=== PATIENT | female | born 1985 | race Caucasian/White ===

== ENCOUNTER → 2020-11-11 16:27 | Outpatient (BNVA) | payer OTHER, SELFPAY | PROVIDERS: Visit Provider Registered Nurse Neonatal Intensive Care | DX: Z20.822 Contact with and (suspected) exposure to COVID-19 (principal) | CPT/HCPCS: 87635 ==

== ENCOUNTER 2022-08-23 20:51 | Emergency (ER) | payer SELFPAY ==
[2022-08-23 20:56] VITALS: BP 110/73; PULSE 108; RESP 16; TEMP 36.6; O2SAT 96; BMI 22.5
--- NOTE | 2022-08-23 21:44 | ED_ITS ---
HPI - Fall General: Chief Complaint: Fall Stated Complaint: Tail Bone Pain\SOB Time Seen by Provider: 08/23/22 21:42 History of Present Illness: 37-year-old female comes in today with complaints of pain to the low back radiating to her tailbone. Patient states that she slipped about 5 days ago landing on her coccyx. Patient's been dealing with the pain with Tylenol and ibuprofen and ice and heat. Patient reports the pain becomes worse at night when she is trying to rest. Patient appears nontoxic. Patient appears nontoxic. Patient appears in no acute distress. Associated symptoms-after fall: Reports abdominal pain Review of Systems General: Reports: 10 or more systems reviewed and unremarkable except in HPI and below Const: Denies: fever(s) Resp: Reports: dyspnea GI: Reports: abdominal pain Musc: Reports: back pain Skin/Breast: Denies: rash Physical Exam Const: COMMON NORMALS: alert HENMT: COMMON NORMALS: normocephalic HEAD & SCALP: normocephalic Neck/C-Spine: COMMON NORMALS: full ROM Resp: COMMON NORMALS: normal respiratory effort and clear to auscultation bilaterally AUSCULTATION: clear to auscultation bilaterally Cardio: COMMON NORMALS: regular rate RATE: regular rate Back/Pelvis: THORACIC SPINE/UPPER BACK: No thoracic spinal tenderness LUMBAR SPINE/LOWER BACK: Yes lumbar spinal tenderness Lumbar spinal tenderness location: L5 Extremity: COMMON NORMALS: normal to inspection Neuro: SENSORIUM/ORIENTATION: Yes alert Skin: COMMON NORMALS: turgor normal GENERAL SKIN EXAM: turgor normal Course Vital Signs: Vital signs: Vital Signs Temperature 97.8 F 08/23/22 20:56 Pulse Rate 108 H 08/23/22 20:56 Respiratory Rate 16 08/23/22 20:56 Blood Pressure 110/73 08/23/22 20:56 Pulse Oximetry 96 08/23/22 20:56 Oxygen Delivery Me thod 08/23/22 20:56 MDM - Fall Medical Decision Making 37-year-old female comes in today with low back pain. Patient fell about 5 days ago and landed on her tailbone since then she has been dealing with the pain but it gets worse at night. Patient's friend was concerned that she may have fractured it and brought her into the ER for further evaluation. On exam patient has tenderness in the L5-S1 area of the spine. Patient moves all extremities well. Patient is ambulatory. Differential diagnosis includes fracture, contusion, intervertebral disc disease. X-ray was unremarkable. Reviewed exam with patient with recommendations for treatment and follow-up. Patient was given 30 mg of Toradol and a 7-1/2 mg of hydrocodone. Patient was recommended continue with medications at home and follow-up with primary care for persistent symptoms or new concerns. Discharge Plan Discharge Patient Disposition: Home Clinical Impression: Fall, Coccydynia Low back pain Qualifiers: Chronicity: acute Back pain laterality: midline Sciatica presence: without sciatica Qualified Code(s): M54.50 - Low back pain, unspecified Condition: Stable Prescriptions: New hydrocodone-acetaminophen 7.5-325 mg/15 mL solution 10 ml PO Q6H PRN (Reason: pain (scale score 7-10)) Qty: 120 0RF No Action No Known Home Medications Discharge Orders: Discharge ED (Routine); Ordered 08/23/22 Ordered By: Teddy Holloway Discharge Diet: Usual diet Discharge Activity: Increase activity as tolerated Patient Instructions: Opioid Safety, Pain Management Activity Restrictions/Additional Instructions: Use a soft cushion to sit on. Drink plenty of water with medication. Use acetaminophen and ibuprofen to control pain. Use hydrocodone for severe pain. Increase activity as tolerated. Follow-up with primary care for further instructions. Return to ED for new concerns. Coding Level of Care Code ED Round Cutter Operator for Lauren James
--- NOTE | 2022-08-23 21:47 | XRR_ITS ---
PROCEDURE INFORMATION: Exam: XR Sacrum and Coccyx, 2 or More Views Exam date and time: 08/23/2022 10:14 PM Age: 37 years old Clinical indication: Injury or trauma; Fall; Blunt trauma (contusions or hematomas); Additional info: Fall pain TECHNIQUE: Imaging protocol: XR of the sacrum and coccyx, 2 or more views. COMPARISON: CR (PELVIS, ) 08/23/2022 10:09 PM FINDINGS: Bones/joints: Normal. No acute fracture. Soft tissues: Normal. XR/XR coccyx 2V [id number] IMPRESSION: No acute findings.
--- NOTE | 2022-08-23 21:47 | XRR_ITS ---
PROCEDURE INFORMATION: Exam: XR Lumbosacral Spine Exam date and time: 08/23/2022 10:09 PM Age: 37 years old Clinical indication: Injury or trauma; Fall; Blunt trauma (contusions or hematomas) TECHNIQUE: Imaging protocol: Radiologic exam of the lumbosacral spine. Views: 2 or 3 views. COMPARISON: No relevant prior studies available. FINDINGS: Bones/joints: Normal. No acute fracture. Normal alignment. Soft tissues: Unremarkable. XR/XR lumbar spine 2-3V* [id number] IMPRESSION: No acute findings.
[2022-08-23] MEDS: ketorolac 30 mg/mL INJ IM (21:56)
[2022-08-23] MEDS: HYDROcodone-APAP 7.5-325 mg/15 mL UDC PO (22:46)
== END 2022-08-23 22:49 | disposition home or self-care (01) ==
PROVIDERS: Emergency Provider Nurse Practitioner Family
DX: M54.50 Low back pain, unspecified (principal); M53.3 Sacrococcygeal disorders, not elsewhere classified; W01.0XXA Fall on same level from slipping, tripping and stumbling without subsequent striking against object, initial encounter
CPT/HCPCS: 72100; 72220; 96372; 99284; J1885

== ENCOUNTER 2023-03-05 18:31 | Emergency (ER) | payer MEDICAID, SELFPAY ==
[2023-03-05 18:41] VITALS: BP 138/84; PULSE 84; RESP 16; TEMP 36.4; O2SAT 97; BMI 25.0
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
--- NOTE | 2023-03-05 19:11 | ED_ITS ---
HPI - Extremity Problem General: Chief complaint: Extremity Injury, Upper Stated complaint: right wrist Time Seen by Provider: 03/05/23 18:36 History of Present Illness: 37-year-old female comes in today for injury to the right wrist. Patient reports tripping and falling and injuring the right wrist. Patient states a previous fracture to the wrist. No obvious deformity or significant swelling is noted to the wrist. Patient is very guarded with movement. Sensation is intact. Review of Systems General: Reports: 10 or more systems reviewed and unremarkable except in HPI and below Musc: Reports: extremity pain and joint pain Physical Exam Const: COMMON NORMALS: alert HENMT: COMMON NORMALS: normocephalic HEAD & SCALP: normocephalic Neck/C-Spine: COMMON NORMALS: full ROM Resp: COMMON NORMALS: normal respiratory effort and clear to auscultation bilaterally AUSCULTATION: clear to auscultation bilaterally Cardio: COMMON NORMALS: regular rate RATE: regular rate Extremity: RIGHT UPPER EXTREMITY: Yes wrist (Joint line tenderness, no swelling or redness) Right wrist: Yes inspection, Yes palpation, Yes ROM (Guar ded range of motion due to pain) and Yes neurovascular exam Neuro: SENSORIUM/ORIENTATION: Yes alert Skin: COMMON NORMALS: turgor normal GENERAL SKIN EXAM: turgor normal Course Vital Signs: Vital signs: Vital Signs Temperature 97.5 F L 03/05/23 18:41 Pulse Rate 84 03/05/23 18:41 Respiratory Rate 16 03/05/23 18:41 Blood Pressure 138/84 03/05/23 18:41 Pulse Oximetry 97 03/05/23 18:41 MDM - Extremity (Nontraumatic) Medical Decision Making Patient comes in today for evaluation of injury to the right wrist that occurred yesterday. On exam patient has tenderness to the joint line with minimal to no swelling. Cap refill is intact. Sensation is intact. Differential diagnosis includes not limited to fracture, sprain, contusion. X-ray noted no fractures. Patient was recommended to wear a splint for 1 week and repeat x-ray if pain pe rsist. XR interpretation done by ED provider, pending radiology final review Discharge Plan Discharge Patient Disposition: Home Clinical Impression: Sprain and strain of wrist Condition: Stable Prescriptions: New hydrocodone-acetaminophen 5-325 mg tablet 1 tab PO Q8H PRN (Reason: pain (scale score 7-10)) Qty: 6 0RF diclofenac sodium 75 mg tablet,delayed release (DR/EC) 75 mg PO BID Qty: 14 0RF Rx Instructions: for pain and inflammation, do not use with ibuprofen or naproxen Discontinued hydrocodone-acetaminophen 7.5-325 mg/15 mL solution 10 ml PO Q6H PRN (Reason: pain (scale score 7-10)) Qty: 120 0RF Discharge Orders: Discharge ED (Routine); Ordered 03/05/23 Ordered By: Teddy Holloway Discharge Diet: Usual diet Discharge Activity: Increase activity as tolerated Patient Instructions: Wrist Sprain (ED), Opioid Safety Activity Restrictions/Additional Instructions: Where Velcro wrist splint or Gallo wrap for comfort. Use acetaminophen and diclofenac as needed for pain and inflammation. Use hydrocodone for severe pain. Use ice packs for further pain relief. Increase activity as tolerated. Stand Alone Forms: Work/School Release Coding Level of Care Code ED Hooker Off for Lauren James
[2023-03-05] MEDS: HYDROcodone-acetaminophen 5-325 mg Tablet 1 TAB PO (19:23)
[2023-03-05 19:50] VITALS: PULSE 73; RESP 14; O2SAT 98
--- NOTE | 2023-03-05 19:50 | PC.NURSE ---
universal wrist splint applied to rt wrist.
== END 2023-03-05 19:53 | disposition home or self-care (01) ==
PROVIDERS: Emergency Provider Nurse Practitioner Family
DX: S63.501A Unspecified sprain of right wrist, initial encounter (principal); S66.911A Strain of unspecified muscle, fascia and tendon at wrist and hand level, right hand, initial encounter; W01.0XXA Fall on same level from slipping, tripping and stumbling without subsequent striking against object, initial encounter
CPT/HCPCS: 73110; 99283

== ENCOUNTER 2024-01-19 10:34 | Emergency (ER) | payer SELFPAY ==
[2024-01-19 10:49] VITALS: BP 125/85; PULSE 93; RESP 20; TEMP 36.9; O2SAT 93; BMI 22.8
--- NOTE | 2024-01-19 10:50 | CT_ITS ---
WS: [id number] CT chest wo con [id number] HISTORY: Traumatic chest pain TECHNIQUE: Axial imaging performed through the thorax. Coronal and sagittal reformats are submitted. All CT scans at [facility] use at least one of these dose optimization techniques: automated exposure control; mA and/or kV adjustment per patient size (includes targeted exams where dose is mat ched to clinical indication); or iterative reconstruction. CONTRAST: None DLP: 441.91 mGy.cm COMPARISON: None available. Small left-sided pneumothorax. There is a small layering pleural effusion without significant increas ed attenuation. There is significant artifact through the lower thorax as the patient's arms are not elevated. The diaphragm cannot be evaluated. Cannot exclude diaphragmatic injury. Subcutaneous emphys ori is noted along the LEFT chest wall. There is also a very tiny RIGHT pleural effusion versus atele ctasis. Mediastinum and keith: Motion artifact obscuring detail to the mediastinum. No significant hematoma. Vessels: Normal size aorta. Limited visualization of the aorta without IV contrast. Fluid in the LEFT pleural space does contact the descending aorta. Chest wall and lower neck: No soft tissue masses. Upper abdomen: Significant artifact through the upper abdomen. Splenic injury would not be excluded o n this examination. Osseous structures: Nondisplaced anterior LEFT fourth, fifth and lateral seventh rib fractures. Nondi splaced possible LEFT sixth rib fracture. There is a subtle lucency through the rib seen on the sagit milagros projection. Thoracic spine is intact. Poorly visualized increased attenuation in the RIGHT posterior abdominal wall probably an area of con tusion with hematoma. CT/CT chest wo con [id number] IMPRESSION: 1. Small LEFT pneumothorax. 2. There is a small LEFT hemothorax. 3. Nondisplaced LEFT fourth, fifth and seventh rib fractures. Possible sixth r ib fracture. 4. Without IV contrast this study cannot exclude thoracic aortic injury. 5. Significant artifact of the lower thorax obscuring evaluation of the diaphr agm and superior spleen. It would be difficult to exclude diaphragmatic injury or splenic injury on this exam. 6. Small amount of subcutaneous air. 7. Soft tissue contusion incompletely visualized along the posterior lateral R IGHT abdominal wall.
[2024-01-19] MEDS: ondansetron 2 mg/ML SDV 2 mL 4 MG IVP (11:00)
[2024-01-19] MEDS: HYDROmorphone 1 mg/mL INJ 1 mL 0.5 MG IVP (11:00)
[2024-01-19 11:09] LABS: Basophils % 0.5 %; Eosinophils # 0.4 10^3/uL (0.0-0.8); Hematocrit 38.6 % (36-47); Lymphocytes # 0.7 10^3/uL (0.8-4.8); Lymphocytes % 8.1 %; Mean Corpuscular HGB Conc 32.9 g/dL (30-55); Mean Corpuscular Hemoglobin 31.4 pg (27-33); Mean Corpuscular Volume 95.3 fl (85-98); Mean Platelet Volume 9.3 fL (7.4-10.4); Monocytes # 0.7 10^3/uL (0.2-0.9); Monocytes % 7.9 %; Neutrophils # 6.83 10^3/uL (1.8-7.7); Neutrophils % 78.9 %; Nucleated Red Blood Cells % 0 %; Platelet Count 309 10^3/cmm (157-399); Red Blood Count 4.05 10^6/uL (3.85-5.65); Red Cell Distribution Width 15.4 % (12.1-15.1); White Blood Count 8.65 10^3/uL (3.29-11.43)
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
[2024-01-19 11:26] LABS: INR 0.92 (0.8-1.2); Partial Thromboplastin Time 26.5 SECONDS (23.9-36.7)
--- NOTE | 2024-01-19 11:28 | PC.PHAR ---
Pts' mom would like any medication to go to [facility]. Pt states pain medication is not even touching her pain level.
[2024-01-19 11:34] LABS: Alanine Aminotransferase 33 U/L (0-33); Albumin Level 3.5 g/dL (3.5-5.2); Alkaline Phosphatase 73 U/L (35-105); Anion Gap 15.5 (5-19); Aspartate Amino Transferase 54 U/L (0-32); Blood Urea Nitrogen 6 mg/dL (6-20); C Reactive Protein 45.7 mg/L (0.0-4.9); Calcium 8.6 mg/dL (8.5-10.5); Carbon Dioxide 24 mmol/L (22-29); Chloride 101 mmol/L (98-107); Creatinine Clr Calc Pharmacy 128.9867; Globulin 3.3 g/dL (1.3-4.6); Glomerular Filtration Rate 110.7 mL/min (90-130); Glucose 106 mg/dL (65-115); Osmolality Calculated 282 mOsm/kg (285-295); Potassium 3.5 mmol/L (3.5-5.1); Sodium 137 mmol/L (136-145); Total Bilirubin 0.4 mg/dL (0.15-1.2); Total Protein 6.8 g/dL (6.6-8.7)
[2024-01-19 11:35] LABS: Lactic Sepsis W/Reflex 0.9 mmol/L (0.5-2.2)
[2024-01-19 11:39] LABS: Procalcitonin 10.96 ng/mL (0-0.5)
[2024-01-19 12:35] VITALS: PULSE 70; O2SAT 96
[2024-01-19 12:41] VITALS: BP 132/78
--- NOTE | 2024-01-19 12:53 | CT_ITS ---
WS: [id number] CT CHEST, ABDOMEN AND PELVIS WITH CONTRAST HISTORY: trauma TECHNIQUE: Contiguous 5 mm axial imaging performed through the chest, abdomen and pelvis with IV cont rast, oral contrast has Been provided. Coronal and sagittal reformats chest. Coronal and sagittal reformats through the abdom en and pelvis. All CT scans at [facility] use at least one of these dose optimization techniq ues: automated exposure control; mA and/or kV adjustment per patient size (includes targeted exams wh ere dose is matched to clinical indication); or iterative reconstruction. CONTRAST: Omnipaque 350; 100 mL IV. DLP: 828.42 mGy.cm COMPARISON: Noncontrast chest 01/19/2024. CT abdomen pelvis 09/19/[address]: Good opacification thoracic aorta. Normal caliber. No aortic injury identified. No dissecti on. Normal size pulmonary artery. Reidentified is the very small left-sided pneumothorax estimated at 10%. There is a small left-sided hemothorax. Mild atelectasis at the RIGHT lung base. Slightly great er compressive atelectasis LEFT lung base. No pulmonary laceration is identified. No adenopathy. Smal l amount of subcutaneous air along the LEFT lateral chest wall. No clavicular fracture. Nondisplaced rib fractures involving the anterior LEFT fourth, fifth and seventh ribs. Potential sixth rib fractur e. These fractures were also described on the prior CT. The diaphragm does appear to be intact on this examination and better visualized as compared to the p rior study. Abdomen CT: No splenic injury or laceration. Pancreatic tail appears normal. Normal liver and gallbla dder. No adrenal mass. Kidneys are enhancing normally. No obstruction. Normal aorta. Central mesenter ic arteries are normal. No mesenteric injury or hematoma. Increasing air within the colon. There is no wall thickening or isc hemia identified. No GI tract obstruction. Soft tissue hematoma along the posterior lateral RIGHT abdominal wall measuring 8.7 x [address]: Urinary bladder is well distended. There is a tiny amount of free fluid in the pelvis. Col lapsing corpus luteum RIGHT ovary measures 1.5 cm. No pelvic fracture. Mild sclerosis involving the SI joints. Normal lumbar vertebral body alignment. CT/CT chest abdpel w/*[id number] IMPRESSION: 1. No thoracic or abdominal aortic injury. 2. Small LEFT pneumothorax, estimated at 10%. 3. Small LEFT hemothorax with compressive atelectasis at the lung bases. 4. Nondisplaced LEFT rib fractures as described above. 5. LEFT diaphragm appears intact. There is no obvious defect. 6. Normal spleen. No splenic rupture. 7. Soft tissue hematoma posterior RIGHT abdomen measures 8.7 x 2.9 cm. 8. No mesenteric injury identified.
[2024-01-19] MEDS: HYDROmorphone 1 mg/mL INJ 1 mL IVP (13:03)
[2024-01-19] MEDS: doxycycline 100 MG in sodium chloride 0.9% (plus) 100 ML IV (13:03)
[2024-01-19] MEDS: iohexol 350 mg/mL 500 mL Btl (per mL) IV (13:09)
[2024-01-19] MEDS: oxyCODONE 5 mg IR Tab/Cap 10 MG PO (14:52)
[2024-01-19 15:00] VITALS: BP 138/83; PULSE 72; O2SAT 97
[2024-01-19 15:07] VITALS: BP 138/83; PULSE 72; O2SAT 97
== END 2024-01-19 15:09 | disposition home or self-care (01) ==
PROVIDERS: Emergency Provider Emergency Medicine
DX: S22.42XA Multiple fractures of ribs, left side, initial encounter for closed fracture (principal); S27.0XXA Traumatic pneumothorax, initial encounter; S27.2XXA Traumatic hemopneumothorax, initial encounter; J18.9 Pneumonia, unspecified organism; V89.2XXA Person injured in unspecified motor-vehicle accident, traffic, initial encounter
CPT/HCPCS: 36415; 71250; 71260; 74177; 80053; 83605; 84145; 85025; 85610; 85730; 86140; 87040; 96365; 96366; 96375; 96376; 99285; J1170; J2405; J3490; Q9967

== ENCOUNTER 2024-04-24 13:02 | Outpatient (RCR) | payer OTHER, SELFPAY | END 2024-04-28 23:59 | disposition home or self-care (01) | LOC: SOT 13:02 | PROVIDERS: Visit Provider Orthopaedic Surgery | DX: S52.571D Other intraarticular fracture of lower end of right radius, subsequent encounter for closed fracture with routine healing (principal); X58.XXXD Exposure to other specified factors, subsequent encounter | CPT/HCPCS: 97110; 97166 ==

== ENCOUNTER 2024-04-29 06:00 | Outpatient (RCR) | payer OTHER, SELFPAY | END 2024-05-29 23:59 | disposition home or self-care (01) | LOC: SOT 06:00 | PROVIDERS: Visit Provider Orthopaedic Surgery | DX: S52.571D Other intraarticular fracture of lower end of right radius, subsequent encounter for closed fracture with routine healing (principal); X58.XXXD Exposure to other specified factors, subsequent encounter | CPT/HCPCS: 97022; 97110; G0283 ==

== ENCOUNTER 2024-05-30 06:30 | Outpatient (RCR) | payer OTHER, SELFPAY | END 2024-06-29 23:59 | disposition home or self-care (01) | LOC: SOT 06:30 | PROVIDERS: Visit Provider Orthopaedic Surgery | DX: S52.571D Other intraarticular fracture of lower end of right radius, subsequent encounter for closed fracture with routine healing (principal); X58.XXXD Exposure to other specified factors, subsequent encounter | CPT/HCPCS: 97022; 97110; G0283 ==

== ENCOUNTER 2024-10-14 16:45 | Emergency (ER) | payer OTHER, SELFPAY ==
--- NOTE | 2024-10-14 16:46 | XRR_ITS ---
PROCEDURE INFORMATION: Exam: XR Right Hand Exam date and time: 10/14/2024 4:49 PM Age: 39 years old Clinical indication: Injury or trauma; Fall; Blunt trauma (contusions or hematomas); Hand; Right; Prior surgery; Surgery date: 6+ months; Surgery type: Carpal tunnel surgery TECHNIQUE: Imaging protocol: Radiologic exam of the right hand. Views: 3 or more views. COMPARISON: No relevant prior studies available. FINDINGS: Bones/joints: There is old fracture of the right 5th metacarpal.There is no evidence for acute fracture or malalignment. Soft tissues: No concerning radioopaque foreign bodies are identified. XR/XR hand RT min 3V* [id number] IMPRESSION: There is no evidence for acute fracture or malalignment.
[2024-10-14 16:49] VITALS: PULSE 106; RESP 17; TEMP 36.7; O2SAT 93; BMI 23.2
--- NOTE | 2024-10-14 16:56 | ED_ITS ---
HPI - Extremity Problem General: Chief complaint: Extremity Injury, Upper Stated complaint: injury to rt hand Time Seen by Provider: 10/14/24 16:46 Source: patient Mode of arrival: ambulatory Limitations: no limitations History of Present Illness: 39-year-old female who [place] and fell and landed on her right hand she has pain in her right pinky states the pain is worse and she has had some swelling and bruising she did have a hard time moving it. She denies any wrist pain denies hitting her head. Associated symptoms: Deny chest pain, fever(s) or rash Related Data Home Medications ?Medication ?Instructions ?Recorded ?Confirmed gabapentin 100 mg capsule 200 mg PO Q8H 01/19/2401/18 hydrocodone 7.5 mg-acetaminophen 1 tab PO Q6H PRN Pain 01/19/24 01/19/24 325 mg tablet methocarbamol 500 mg tablet 500 mg PO Q8H 01/19/24 Previous Rx's ?Medication ?Instructions ?Recorded diclofenac sodium 50 mg 50 mg PO BID PRN pain #14 ta bs 01/19/24 tablet,delayed release ondansetron 8 mg disintegrating 8 mg PO Q6H #14 tabs 0 01/19/24 tablet oxycodone 10 mg tablet 10 mg PO Q8H PRN pain #20 ta bs 01/19/24 polyethylene glycol 3350 17 17 g PO DAILY #510 grams 0 01/19/24 gram/dose oral powder (Miralax) hydrocodone 5 mg-acetaminophen 325 1 tab PO Q6H PRN pa in #6 tabs 10/14/24 mg tablet naproxen 500 mg tablet (Naprosyn) 500 mg PO BID PRN pa in #20 tabs 10/14/24 Allergies Allergy/AdvReac Type Severity Reaction Status Date / Time tomato Allergy ALGY-Swell Verified 01/19/24 10:55 Lip/Tongue/Throat Review of Systems Const: Denies: fever(s), chills, body aches or change in appetite ENMT: Denies: throat pain or dental pain Card: Denies: chest pain Resp: Denies: dyspnea GI: Denies: abdominal pain, nausea, vomiting or diarrhea Musc: Reports: extremity pain; Denies: neck pain or back pain Skin/Breast: Denies: rash Neuro: Denies: headache(s) Physical Exam Const: COMMON NORMALS: no acute distress, patient oriented x3 and healthy appearing HENMT: COMMON NORMALS: normocephalic and atraumatic HEAD & SCALP: normocephalic and atraumatic Eye: COMMON NORMALS: conjunctivae normal CONJUNCTIVA: Yes conjunctivae normal Neck/C-Spine: COMMON NORMALS: full ROM and supple Chest: COMMONS NORMALS: normal inspection of the chest Resp: COMMON NORMALS: normal respiratory effort Cardio: COMMON NORMALS: regular rate RATE: regular rate Extremity: NARRATIVE EXTREMITY EXAM: tenderness over right pinky finger with swelling Neuro: COMMON NORMALS: patient oriented x3, moves all extremities and no focal motor deficits Psych: COMMON NORMALS: mental status grossly normal, Normal thought process present and cooperative THOUGHT PROCESS: Normal thought process present Skin: COMMON NORMALS: no rashes or lesions noted and no wounds GENERAL SKIN EXAM: no rashes or lesions noted Course Vital Signs: Vital signs: Vital Signs Temperature 98.1 F 10/14/24 16:49 Pulse Rate 106 H 10/14/24 16:49 Respiratory Rate 17 10/14/24 16:49 Pulse Oximetry 93 10/14/24 16:49 Oxygen Delivery Me thod Room Air 10/14/24 16:49 MDM - Extremity (Nontraumatic) Medical Decision Making Patient presents here with finger sprain x-ray shows no fracture no signs of dislocation she stable for discharge follow-up PCP return if worsening. Medical Records I reviewed the patient's medical records. XR interpretation done by ED provider, pending radiology final review ED provider radiology interpretation(s): xr L hand: no acute fx Discharge Plan Discharge Patient Disposition: Home Clinical Impression: Finger sprain Qualifiers: Encounter type: initial encounter Finger: little finger Sprain of finger site: unspecified site Laterality: right Qualified Code(s): S63.616A - Unspecified sprain of right little finger, initial encounter Condition: Stable Prescriptions: New hydrocodone-acetaminophen 5-325 mg tablet 1 tab PO Q6H PRN (Reason: pain) Qty: 6 0RF naproxen [Naprosyn] 500 mg tablet 500 mg PO BID PRN (Reason: pain) Qty: 20 0RF No Action methocarbamol 500 mg Tablet 500 mg PO Q8H [place] 7.5-325 mg Tablet 1 tab PO Q6H PRN (Reason: Pain) gabapentin 100 mg Capsule 200 mg PO Q8H oxycodone 10 mg tablet 10 mg PO Q8H PRN (Reason: pain) Qty: 20 0RF ondansetron 8 mg tablet,disintegrating 8 mg PO Q6H Qty: 14 0RF Rx Instructions: Take 1/2-1 tab every 6 hours as needed for nausea and vomiting diclofenac sodium 50 mg tablet,delayed release (DR/EC) 50 mg PO BID PRN (Reason: pain) Qty: 14 0RF Miralax 17 gram/dose powder 17 g PO DAILY Qty: 510 0RF Rx Instructions: Take 1 scoop daily while taking pain medications. Discharge Orders: Discharge ED (Routine); Ordered 10/14/24 Ordered By: Delaney Luevano Discharge Diet: Advance as tolerated Discharge Activity: Resume usual activity Patient Instructions: Finger Sprain (ED) Print Language: Gibraltarian Coding Level of Care Code ED Television Producer for Lauren James
[2024-10-14] MEDS: HYDROcodone-acetaminophen 5-325 mg Tablet 1 TAB PO (16:58)
== END 2024-10-14 17:22 | disposition home or self-care (01) ==
PROVIDERS: Emergency Provider Emergency Medicine
DX: S63.616A Unspecified sprain of right little finger, initial encounter (principal); W01.0XXA Fall on same level from slipping, tripping and stumbling without subsequent striking against object, initial encounter; Y92.828 Other wilderness area as the place of occurrence of the external cause; Z79.899 Other long term (current) drug therapy
CPT/HCPCS: 73130; 99283; J9999

== ENCOUNTER 2024-10-19 11:40 | Emergency (ER) | payer OTHER, SELFPAY ==
[2024-10-19] VITALS (7 sets, daily range): BP systolic 121–184; BP diastolic 71–97; PULSE 80–116; RESP 21; TEMP 37; O2SAT 97–98; BMI 22.8
[2024-10-19 12:01] LABS: Glucose Point of Care 96 mg/dL (70-110)
--- NOTE | 2024-10-19 12:03 | ECG_ITS ---
[facility] Test Date: 2024-10-19 Pat Name: Yajaira Wong Department: Room: Gender: Female Group Teacher: : 1985 Requested By: Suzy Zepeda Order Number: [id number] Katy MD: Kojo Sanchez M.D. Measurements Intervals [place] Rate: 98 P: 75 OR: 133 QRS: 65 QRSD: 82 T: 47 QT: 359 QTc: 458 Interpretive Statements SINUS RHYTHM LEFT ATRIAL ENLARGEMENT [-0.15mV P-WAVE IN V1/V2] No previous ECG available for comparison Electronically Signed On 10-19-2024 16:24:42 CDT by Kojo Sanchez M.D. [email or web address] [id number]
--- NOTE | 2024-10-19 12:22 | ED_ITS ---
HPI - Nausea/Vomiting/Diarrhea 2 General: Chief complaint: Nausea/Vomiting/Diarrhea Stated complaint: vomitting, shaking Time Seen by Provider: 10/19/24 11:50 History of Present Illness: 39-year-old female who presents to the e mergency room with nausea and vomiting and shaking. She said she woke up this morning started vomiting and then started feeling numb and tingly all over and having tremors. No abdominal pain. No chest pain. She is fairly tachypneic and seems quite anxious. She is concerned about a couple tick bites she has had recently. Related Data Home Medications ?Medication ?Instructions ?Recorded ?Confirmed acetaminophen 500 mg tablet 500 mg PO Q6H PRN Pain 10/19/24 (Tylenol Extra Strength) ibuprofen 200 mg tablet (Advil) 1,000 mg PO Q6H PRN Fe negra Or Pain 10/19/24 10/19/24 Previous Rx's ?Medication ?Instructions ?Recorded hydrocodone 5 mg-acetaminophen 325 1 tab PO Q6H PRN pa in #6 tabs 10/14/24 mg tablet naproxen 500 mg tablet (Naprosyn) 500 mg PO BID PRN pa in #20 tabs 10/14/24 ondansetron 4 mg disintegrating 4 mg PO Q8H PRN nausea and 10/19/24 tablet vomiting #10 tabs promethazine 25 mg rectal 25 mg ND Q6H PRN nausea and 10/19/24 suppository vomiting #12 ea Allergies Allergy/AdvReac Type Severity Reaction Status Date / Time tomato Allergy ALGY-Swell Verified 01/19/24 10:55 Lip/Tongue/Throat Review of Systems 2 Narrative: General: Alert, no acute distress. Skin: Warm, dry. Head: Normocephalic, atraumatic. Neck: Supple, trachea midline. Eye: Extraocular movements are intact. Ears, nose, mouth and throat: mucosa moist. Cardiovascular: Regular, Normal peripheral perfusion. Respiratory: Lungs are clear to auscultation, respirations are non-labored, breath sounds are equal, Symmetrical chest wall expansion. Gastrointestinal: Soft, Nontender, Non distended Musculoskeletal: Normal ROM, no deformity. Neurological: Alert and oriented, No focal neurological deficit observed. Psychiatric: Cooperative, appropriate mood & affect. Physical Exam 2 Narrative: EXAM NARRATIVE: General: Alert, no acute distress. Skin: Warm, dry. Head: Normocephalic, atraumatic. Neck: Supple, trachea midline. Eye: Extraocular movements are intact. Ears, nose, mouth and throat: mucosa moist. Cardiovascular: Regular, tachycardic, normal peripheral perfusion. Respiratory: Lungs are clear to auscultation, respirations are non-labored, breath sounds are equal, Symmetrical chest wall expansion. Slightly tachypneic Gastrointestinal: Soft, Nontender, Non distended Musculoskeletal: Normal ROM, no deformity. Neurological: Alert and oriented, No focal neurological deficit observed. Psychiatric: Cooperative, patient is quite anxious and tremulous Course 2 Vital Signs: Vital signs: Vital Signs Temperature 98.6 F 10/19/24 11:49 Pulse Rate 80 10/19/24 14:00 Respiratory Rate 21 H 10/19/24 11:49 Blood Pressure 136/71 10/19/24 14:00 Pulse Oximetry 98 10/19/24 14:00 Oxygen Delivery Me thod Room Air 10/19/24 14:00 MDM - Nausea/Vomiting/Diarrhea Medical Decision Making Medical decision making: Differential diagnosis for this patient with nausea and vomiting including but not limited to and based on the above HPI, review of systems and physical exam: Urinary tract infection. Appendicitis. Cholecystitis. Colitis. small bowel obstruction. crohn's flare. pancreatitis. gastritis. peptic ulcer. cyclic vomiting. Viral illness. Influenza. COVID. Orders placed to evaluate differential diagnosis based on the above differential, HPI and physical exam Lab Review: Laboratory results were reviewed and interpreted by myself the emergency room physician. No leukocytosis. No anemia. No renal failure. Urine drug screen positive for marijuana. Urinalysis negative for infection. Slightly concentrated which would indicate some dehydration. ABG does indicate some hyperventilation. I reviewed the patient's medical record. Reexamination: Patient remained stable. No increased work of breathing. No altered mental status. No focal motor deficits. Assessment and plan: Vomiting Dehydration Hyperventilation ?IV Ativan, IV Zofran, IV normal saline bolus. Compazine and Benadryl - Discharged home - Discussed plan with patient. Answered any questions. - Evaluation and treatment of this problem were appropriate in the emergency setting. Lab Data 10/19/24 12:17 10/19/24 12:17 Laboratory Results WBC 7.17 10^3/uL (3.29-11.43) 10/19/24 12:17 RBC 4.27 10^6/uL (3.85-5.65) 10/19/24 12:17 Hgb 14.10 g/dL (11.27-16.99) 10/19/24 12:17 Hct 42.2 % (36-47) 10/19/24 12:17 MCV 98.8 fl (85-98) H 10/19/24 12:17 MCH 33.0 pg (27-33) 10/19/24 12:17 MCHC 33.4 g/dL (30-55) 10/19/24 12:17 RDW 14.6 % (12.1-15.1) 10/19/24 12:17 Plt Count 272 10^3/cmm (157-399) 10/19/24 12:17 MPV 9.1 fL (7.4-10.4) 10/19/24 12:17 Neut % (Auto) 82.0 % 10/19/24 12:17 Lymph % (Auto) 9.6 % 10/19/24 12:17 Gordon % (Auto) 6.8 % 10/19/24 12:17 Eos % (Auto) 0.7 % 10/19/24 12:17 Baso % (Auto) 0.8 % 10/19/24 12:17 Neut # (Auto) 5.87 10^3/uL (1.8-7.7) 10/19/24 12:17 Lymph # (Auto) 0.7 10^3/uL (0.8-4.8) L 10/19/24 12:17 Gordon # (Auto) 0.5 10^3/uL (0.2-0.9) 10/19/24 12:17 Eos # (Auto) 0.1 10^3/uL (0.0-0.8) 10/19/24 12:17 Baso # (Auto) 0.1 10^3/uL (0.0-0.1) 10/19/24 12:17 Nucleated RBC % (auto) 0 % 10/19/24 12:17 Nucleated RBCs # 0.0 /100WBC 10/19/24 12:17 Specimen Type Arterial 10/19/24 12:25 Sample Site Radial, left 10/19/24 12:25 ABG pH 7.48 (7.35-7.45) H 10/19/24 12:25 ABG pCO2 32.8 mmHg (35-45) L 10/19/24 12:25 ABG pO2 90.4 mmHg (80.0-100.0) 10/19/24 12:25 ABG PO2/FiO2 Ratio 430 10/19/24 12:25 ABG HCO3 24.3 mmol/L (22-26) 10/19/24 12:25 ABG O2 Saturation 97.1 10/19/24 12:25 ABG Base Excess 0.8 mmol/L (-2.0-2.0) 10/19/24 12:25 Omari Test Pos 10/19/24 12:25 A-a O2 Gradient 2.3 mmHg (5-10) L 10/19/24 12:25 Hematocrit 18.6 % (37-47) L 10/19/24 12:25 Hgb O2 Saturation > 100.0 % (95-100) H 10/19/24 12:25 Carboxyhemoglobin < 0.3 %THgb (0.4-20.1) L 10/19/24 12:25 Methemoglobin < 0.0 % (0.4-1.5) L 10/19/24 12:25 Total Hemoglobin 6.1 g/dL (12-16) L 10/19/24 12:25 Sodium 139.0 mmol/L (131-143) 10/19/24 12:25 Potassium 4.3 mmol/L (3.5-5.0) 10/19/24 12:25 Glucose 95.0 mg/dL (70-115) 10/19/24 12:25 Ionized Calcium 1.1 mmol/L (1.1-1.4) 10/19/24 12:25 O2 Delivery Device Room air 10/19/24 12:25 FiO2 21.0 % 10/19/24 12:25 Salesperson [employer] ID [employer] 10/19/24 12:25 Sodium 135 mmol/L (136-145) L 10/19/24 12:17 Potassium 4.0 mmol/L (3.5-5.1) 10/19/24 12:17 Chloride 98 mmol/L (98-107) 10/19/24 12:17 Carbon Dioxide 23 mmol/L (22-29) 10/19/24 12:17 Anion Gap 18.0 (5-19) 10/19/24 12:17 BUN 9 mg/dL (6-20) 10/19/24 12:17 Creatinine 0.7 mg/dL (0.5-0.9) 10/19/24 12:17 GFR Calculation 92.2 mL/min (90-130) 10/19/24 12:17 Glucose 93 mg/dL (65-115) 10/19/24 12:17 POC Glucose 96 mg/dL (70-110) 10/19/24 11:58 Calculated Osmolality 278 mOsm/kg (285-295) L 10/19/24 12:17 Calcium 8.7 mg/dL (8.5-10.5) 10/19/24 12:17 Total Bilirubin 0.7 mg/dL (0.15-1.2) 10/19/24 12:17 AST 57 U/L (0-32) H 10/19/24 12:17 ALT 30 U/L (0-33) 10/19/24 12:17 Alkaline Phosphatase 71 U/L (35-105) 10/19/24 12:17 Total Protein 7.9 g/dL (6.6-8.7) 10/19/24 12:17 Albumin 4.4 g/dL (3.5-5.2) 10/19/24 12:17 Globulin 3.5 g/dL (1.3-4.6) 10/19/24 12:17 Lipase 28 U/L (13-60) 10/19/24 12:17 Urine Color Yellow (Yellow) 10/19/24 12:06 Urine Appearance Clear (CLEAR) 10/19/24 12:06 Urine pH >=9.0 (5-7) A 10/19/24 12:06 Ur Specific [place] 1.023 (1.005-1.030) 10/19/24 12:06 Urine Protein 2+ (Negative) A 10/19/24 12:06 Urine Glucose (UA) Negative (Normal) 10/19/24 12:06 Urine Ketones 1+ (Negative) H 10/19/24 12:06 Urine Blood Negative (Negative) 10/19/24 12:06 Urine Nitrate Negative (Negative) 10/19/24 12:06 Urine Bilirubin Negative (Negative) 10/19/24 12:06 Urine Urobilinogen 1.0 mg/dL (Negative) 10/19/24 12:06 Ur Leukocyte Esterase Negative (Negative) 10/19/24 12:06 Urine RBC 6-10 /hpf (0-2) 10/19/24 12:06 Urine WBC 0-5 /hpf (0-5) 10/19/24 12:06 Ur Squamous Epith Cells 6-10 /hpf (0-5) 10/19/24 12:06 Amorphous Sediment Not Reportable 10/19/24 12:06 Urine Bacteria None seen /hpf (NONE) 10/19/24 12:06 Hyaline Casts 0.40 /lpf 10/19/24 12:06 Urine Opiates Screen Negative ng/mL (Negative) 10/19/24 12:06 Ur Barbiturates Screen Negative ng/mL (Negative) 10/19/24 12:06 Ur Phencyclidine Scrn Negative ng/mL (Negative) 10/19/24 12:06 Ur Amphetamines Screen Negative ng/mL (Negative) 10/19/24 12:06 U Benzodiazepines Scrn Negative ng/mL (Negative) 10/19/24 12:06 Urine Cocaine Screen Negative ng/mL (Negative) 10/19/24 12:06 U Marijuana (THC) Screen Positive ng/mL (Negative) H 10/19/24 12:06 No radiology studies performed this visit Discharge Plan Discharge Patient Disposition: Home Clinical Impression: Gastroenteritis Condition: Stable Prescriptions: New promethazine 25 mg suppository 25 mg ND Q6H PRN (Reason: nausea and vomiting) Qty: 12 0RF ondansetron 4 mg tablet,disintegrating 4 mg PO Q8H PRN (Reason: nausea and vomiting) Qty: 10 0RF No Action hydrocodone-acetaminophen 5-325 mg tablet 1 tab PO Q6H PRN (Reason: pain) Qty: 6 0RF naproxen [Naprosyn] 500 mg tablet 500 mg PO BID PRN (Reason: pain) Qty: 20 0RF acetaminophen [Tylenol Extra Strength] 500 mg Tablet 500 mg PO Q6H PRN (Reason: Pain) ibuprofen [Advil] 200 mg Tablet 1,000 mg PO Q6H PRN (Reason: Fever Or Pain) Discharge Orders: Discharge ED (Routine); Ordered 10/19/24 Ordered By: Suzy Bone Discharge Diet: Advance as tolerated Discharge Activity: Increase activity as tolerated Patient Instructions: Opioid Safety, Pain Management Activity Restrictions/Additional Instructions: Thank you for choosing [facility] for your healthcare needs today. You have been screened and evaluated and felt safe for discharge. Health conditions do change or evolve sometimes and as such it is important that you follow up with your Primary Doctor to be re checked, 3-5 days is a general good time frame for follow up. You are always welcome to return to the ED for re assessment if your symptoms are worsening or you have new concerns Print Language: Japanese Coding Level of Care Code ED Bird Tender for Luaren James
[2024-10-19 12:25] LABS: Basophils # 0.1 10^3/uL (0.0-0.1); Basophils % 0.8 %; Eosinophils # 0.1 10^3/uL (0.0-0.8); Eosinophils % 0.7 %; Hematocrit 42.2 % (36-47); Lymphocytes # 0.7 10^3/uL (0.8-4.8); Lymphocytes % 9.6 %; Mean Corpuscular HGB Conc 33.4 g/dL (30-55); Mean Corpuscular Volume 98.8 fl (85-98); Mean Platelet Volume 9.1 fL (7.4-10.4); Monocytes # 0.5 10^3/uL (0.2-0.9); Monocytes % 6.8 %; Neutrophils # 5.87 10^3/uL (1.8-7.7); Nucleated Red Blood Cells % 0 %; Platelet Count 272 10^3/cmm (157-399); Red Blood Count 4.27 10^6/uL (3.85-5.65); Red Cell Distribution Width 14.6 % (12.1-15.1); White Blood Count 7.17 10^3/uL (3.29-11.43)
[2024-10-19 12:27] LABS: Bilirubin Urine Negative (Negative); Blood Urine Negative (Negative); Glucose Urine UA Negative (Normal); Ketones Urine 1+ (Negative); Leukocyte Esterase Urine Negative (Negative); Nitrate Urine Negative (Negative); Protein Urine 2+ (Negative); Specific Gravity, Urine 1.023 (1.005-1.030); Urine Appearance Clear (CLEAR); Urine Color Yellow (Yellow); pH Urine >=9.0 (5-7)
[2024-10-19] MEDS: ondansetron 2 mg/ML SDV 2 mL 8 MG IVP (12:29)
[2024-10-19] MEDS: LORazepam 1 MG/0.5 ML injection IVP (12:30)
[2024-10-19 12:32] LABS: Bacteria Urine None Seen /hpf; WBC Urine 0-5 /hpf (0-5)
[2024-10-19 12:34] LABS: Amphetamines Screen Urine Negative (Negative); Barbiturates Screen Urine Negative (Negative); Benzodiazepines Screen Urine Negative (Negative); Cocaine Screen Urine Negative (Negative); Opiate Screen Urine Negative (Negative); PCP Screen Urine Negative (Negative); THC Screen Urine Positive (Negative)
[2024-10-19 12:36] LABS: ABG PCO2 32.8 mmHg (35-45); ABG PH Result 7.48 (7.35-7.45); Alveolar-Arterial Oxygen Gradi 2.3 mmHg (5-10); Arterial Blood Gas Hematocrit 18.6 % (37-47); Base Excess ABG 0.8 mmol/L (-2.0-2.0); Blood Gas Allen Test Pos; Blood Gas Operator Identificat WALCI; Blood Gas Sample Site Radial, left; Blood Gas Sample Type Arterial; Carboxyhemoglobin < 0.3 %THgb (0.4-20.1); HCO3 ABG 24.3 mmol/L (22-26); HGB O2 Sat > 100.0 % (95-100); Ionized Calcium Level - ABG 1.1 mmol/L (1.1-1.4); Methemoglobin < 0.0 % (0.4-1.5); Oxygen Device ROOM AIR; Oxygen Saturation ABG 97.1; PO2 ABG 90.4 mmHg (80.0-100.0); PO2 FiO2 Ratio Arterial Blood 430; Potassium Level - ABG 4.3 mmol/L (3.5-5.0); Total Hemoglobin 6.1 g/dL (12-16)
[2024-10-19 12:45] LABS: Alanine Aminotransferase 30 U/L (0-33); Albumin Level 4.4 g/dL (3.5-5.2); Alkaline Phosphatase 71 U/L (35-105); Aspartate Amino Transferase 57 U/L (0-32); Blood Urea Nitrogen 9 mg/dL (6-20); Calcium 8.7 mg/dL (8.5-10.5); Carbon Dioxide 23 mmol/L (22-29); Chloride 98 mmol/L (98-107); Creatinine Clr Calc Pharmacy 109.4544; Globulin 3.5 g/dL (1.3-4.6); Glomerular Filtration Rate 92.2 mL/min (90-130); Glucose 93 mg/dL (65-115); Lipase 28 U/L (13-60); Osmolality Calculated 278 mOsm/kg (285-295); Sodium 135 mmol/L (136-145); Total Bilirubin 0.7 mg/dL (0.15-1.2); Total Protein 7.9 g/dL (6.6-8.7)
[2024-10-19] MEDS: sodium chloride 0.9% 1,000 ML 999 ML IV (13:14)
[2024-10-19] MEDS: diphenhydrAMINE 50 mg/mL SDV 1mL IVP (13:38)
[2024-10-19] MEDS: prochlorperazine 10 mg/2 mL Inj IVP (13:39)
== END 2024-10-19 14:49 | disposition home or self-care (01) ==
PROVIDERS: Emergency Provider Emergency Medicine
DX: K52.9 Noninfective gastroenteritis and colitis, unspecified (principal)
CPT/HCPCS: 36416; 36600; 80051; 80053; 80306; 81001; 82330; 82805; 82962; 83690; 85025; 93005; 96361; 96374; 96375; 99284; J0780; J1200; J2060; J2405; J7030